=== PATIENT | female | born 1995 | race Caucasian/White ===

== ENCOUNTER 2024-04-29 23:44 | Emergency (ER) | payer BC, SELFPAY ==
[2024-04-29 23:46] VITALS: BP 132/90
[2024-04-30 00:07] LABS: % Basophils 0.3 % (0-2); % Eosinophils 0.4 % (0-6); % Immature Granulocytes 0.3 % (0-0.5); % Lymphocytes 15.3 % (20.5-51.1); % Neutrophils 79.7 % (42.2-75.2); Absolute Lymphocytes 1.2 10^3/uL (1.2-3.4); Absolute Monocytes 0.3 10^3/uL (0.1-0.6); Absolute Neutrophils 6.2 10^3/uL (1.4-6.5); Hematocrit 39.7 % (37.0-47.0); Mean Corp Hgb Conc. 35.3 g/dL (33.0-37.0); Mean Corpuscular Hgb 30.5 pg (27.0-31.0); Mean Corpuscular Volume 86.5 fL (81.0-99.0); Mean Platelet Volume 9.4 fL (7.4-10.4); Nucleated Red Blood Cells % 0 %; Platelet Count 285 10^3/uL (130-400); Red Blood Cell Count 4.59 10^6/uL (4.20-5.40); Red Cell Dist. Width 11.4 % (11.5-14.5); White Blood Cell Count 7.7 10^3/uL (4.8-10.8)
[2024-04-30 00:21] LABS: HCG, Serum Qualitative Screen Negative
[2024-04-30 00:29] LABS: ALT (SGPT) 24 U/L (0-35); AST (SGOT) 28 U/L (14-36); Albumin 5.4 g/dl (3.5-5.0); Alkaline Phosphatase 34 U/L (38-126); Blood Urea Nitrogen 16 mg/dl (7-17); Calcium 10.3 mg/dl (8.4-10.2); Carbon Dioxide 24 mmol/L (22-30); Chloride 100 mmol/L (98-107); Glucose 104 mg/dl (70-99); Potassium 4.2 mmol/L (3.5-5.1); Sodium 140 mmol/L (135-145); Total Bilirubin 1.3 mg/dl (0.2-1.3); Total Protein 8.3 g/dl (6.3-8.2); eGFR > 60.00
[2024-04-30] MEDS: ZOFRAN 4 MG IV (01:21)
[2024-04-30] MEDS: NSS 1000 IV ×2 (01:21→03:16)
[2024-04-30 01:23] VITALS: BMI 25.9
--- NOTE | 2024-04-30 01:31 | ED.GENMED ---
History of Present Illness
General
Chief Complaint: Abdominal Symptoms
Time Seen by Provider: 04/30/24 00:59
History of Present Illness
History of Present Illness:
29-year-old female without significant past medical history presenting for abdominal pain, nausea, vomiting. Patient reports several months ago she was on semaglutide for weight loss. She has been off the medications, however decided to go back on
them. She took the medication yesterday, however started at her higher dose. Since then has had nausea, vomiting, inability to tolerate food or liquid by mouth. Notes upper abdominal discomfort. Denies chest pain or difficulty breathing. Denies
fever. Denies history of abdominal surgeries. Denies urinary complaints. Denies additional acute medical complaints
Phy Exam
Physical Exam
Physical Exam:
General: Well-appearing, no clinical signs of dehydration, nontoxic and in no acute distress
HEENT: protecting airway
Neck: appears supple
CV: Normal heart rate, regular rhythm
Resp: No accessory muscle use, no increased work of breathing, lungs clear to auscultation bilaterally
Abd: Soft and non-distended, no tenderness to palpation
Neuro: alert, no focal neurologic deficit
: deferred
Rectal: deferred
Psych: Normal affect
Skin: Intact
Course
Orders/Labs/Results
Orders:
Orders
04/29/24 23:51
Test Result ONCE
04/29/24 23:56
Complete Blood Count/With Diff Urgent
Comprehensive Metabolic Panel Urgent
HCG, Serum Qualitative Screen Urgent
Lipase Urgent
Comment: ADDED
04/30/24 01:09
Add On- LAB Urgent
Tests Added?: lipase
0.9% Sodium Chloride 1000 ml [Nss] 1,000 ml IV BOLUS
Ondansetron Injectable [Zofran] 4 mg IV NOW STA
04/30/24 02:27
0.9% Sodium Chloride 1000 ml [Nss] 1,000 ml IV BOLUS
Metoclopramide [Reglan] 10 mg IV NOW STA
04/30/24 04:20
Electrocardiogram (*1) Stat
Reason for Study: Other
Other Reason for Exam: r/o qtc
Electrocardiogram (*1) Urgent
EKG- Treatment ONCE
Metoclopramide [Reglan] 10 mg IV NOW STA
Abnormal Lab Results
04/29/24
23:56
RDW 11.4 L %
(11.5-14.5)
Neutrophils % 79.7 H %
(42.2-75.2)
Lymphocytes % 15.3 L %
(20.5-51.1)
Glucose 104 H mg/dl
(70-99)
Calcium 10.3 H mg/dl
(8.4-10.2)
Alkaline Phosphatase 34 L U/L
(38-126)
Total Protein 8.3 H g/dl
(6.3-8.2)
Albumin 5.4 H g/dl
(3.5-5.0)
04/29/24 23:56
04/29/24 23:56
Vital Signs
Initial and Last Documented VS:
Initial Vital Signs
Temp Pulse Resp BP Pulse Ox
98.2 F 100 20 132/90 98
04/29/24 23:46 04/29/24 23:46 04/29/24 23:46 04/29/24 23:46 04/29/24 23:46
Last Documented Vital Signs
Temp Pulse Resp BP Pulse Ox
98.2 F 79 16 119/80 98
04/29/24 23:46 04/30/24 02:37 04/30/24 02:37 04/30/24 02:37 04/30/24 02:37
MDM/Problems Addressed
MDM/Problems Addressed:
29-year-old female presenting to the emergency department for nausea, vomiting, abdominal discomfort after taking semaglutide. Vital signs are normal.
On exam, patient is resting comfortably, no acute distress, no active emesis. Symptoms appear most consistent with enteritis, likely secondary to the semaglutide at higher dose. No reproducible tenderness to abdomen lower suspicion for serious
intra-abdominal process. No indication for advanced imaging. Pancreatitis is a consideration given semaglutide effect. Will obtain laboratory analysis, including lipase. Will start patient IV fluids and Zofran and reassess for improvement
02:30 -patient is still feeling nauseous and vomiting. Will administer Reglan and additional fluids.
04:20 -patient requesting another dose of Reglan. Will administer, however will preemptively screen with EKG to ensure normal QTc. Otherwise patient reports that she is feeling better, requesting to go home. Feel stable for discharge, however
advise discussing with her doctor regarding dosage of her semaglutide. Advised continued oral hydration. Return precautions discussed and patient verbalized understanding
*Critical Care Note
Total Time (30-74mins, 75-104mins- exclusive of procedures): Not Applicable
ED Attending Note
-
Portions of this chart may have been created with voice recognition software.� Occasional wrong word or��sound alike� substitutions may have occurred due to the inherent limitations of voice recognition software.
Discharge Plan
Departure
Prescriptions:
No Action
cephalexin 500 MG capsule
500 mg PO QID Qty: 40 0RF
sulfamethoxazole-trimethoprim 1 TABLET tablet
1 tab PO BID Qty: 20 0RF
Referrals:
Logan Sharma MD [Family Provider] -
Interventions
Interventions:
*Risk Screen - Suicide Last Done: 04/29/24 23:46
*General Assessment Last Done: 04/30/24 01:23
*Neglect/Abuse Screening Last Done: 04/29/24 23:46
ED- Fall Risk Assessment Last Done: 04/30/24 01:24
*ED COVID-19 Vaccine History Last Done: 04/30/24 01:23
ZC-Prbmgd-Gaowspksbt Assessment Last Done: 04/30/24 02:37
Discharge Date and Time
Print Language: [place]IZ[place]
[2024-04-30 02:20] LABS: Lipase 237 U/L (23-300)
[2024-04-30] MEDS: REGLAN 10 MG IV ×2 (02:34→04:36)
[2024-04-30 02:37] VITALS: BP 119/80
[2024-04-30 04:41] VITALS: BP 113/74
== END 2024-04-30 05:16 | disposition home or self-care (01) ==
LOC: EMR 23:44
PROVIDERS: Emergency Medicine; EMERGENCY PHYSICIAN Student in an Organized Health Care Education/Training Program; FAMILY PHYSICIAN Internal Medicine
DX: R11.2 Nausea with vomiting, unspecified (principal); R10.9 Unspecified abdominal pain
CPT/HCPCS: 96374; 96375; 96361; 99284; 80053; 83690; 84703; 85025; 93005